=== PATIENT | male | born 1985 | race Caucasian/White ===

== ENCOUNTER 2018-11-09 10:07 | Outpatient (REF) | payer BC, SELFPAY ==
[2018-11-09 14:20] LABS: Cholesterol 259 mg/dL (50-200); HDL Cholesterol 74 mg/dL (40-60); LDL CHOLESTEROL 155 mg/dL (<100); Triglyceride 66 mg/dL (30-150)
== END 2018-11-09 10:27 ==
LOC: NCHCN 10:07
PROVIDERS: Visit Provider Nurse Practitioner
DX: Z00.00 Encounter for general adult medical examination without abnormal findings (principal); Z13.220 Encounter for screening for lipoid disorders
CPT/HCPCS: 80061; 83721

== ENCOUNTER 2020-11-26 02:53 | Outpatient (CLI) | payer BC, SELFPAY ==
[2020-12-03 17:29] LABS: Alternaria Tenuis IgE <0.35 kU/L; Aspergillus Fumigatus IgE 1.86 kU/L; Bermuda Grass IgE <0.35 kU/L; Cladosporium IgE <0.35 kU/L; Cocklebur IgE 0.39 kU/L; D Farinae IgE 5.75 kU/L; D Pteronyssinus IgE 5.83 kU/L; Dog Dander IgE 27.9 kU/L; Eastern Sycamore IgE <0.35 kU/L; Elm IgE <0.35 kU/L; Epicoccum purpurascens IgE <0.35 kU/L; Giant Ragweed IgE 0.48 kU/L; Lamb's Quarter IgE 0.41 kU/L; Oak IgE 0.58 kU/L; Penicillium chrysogenum IgE <0.35 kU/L; Rough Pigweed IgE <0.35 kU/L; Short Ragweed IgE 1.14 kU/L; Silver Birch IgE 0.66 kU/L; Stemphyllium IgE <0.35 kU/L; Timothy Grass IgE 0.98 kU/L; Walnut Tree IgE <0.35 kU/L; Wormwood IgE 0.52 kU/L
[2020-12-03 17:49] LABS: Cottonwood IgE <0.35 kU/L; Red Sorrel IgE <0.35 kU/L
[2020-12-08 10:50] LABS: CLASS 0; CLASS 0/1; Fusarium oxysporum/vasinfectum <0.35 kU/L (<0.35)
[2020-12-11 16:16] LABS: Rhodotorula IgE QNS kU/L (<0.35)
== END 2020-11-26 02:54 | disposition home or self-care (01) ==
LOC: LBO 02:53
PROVIDERS: PCP Nurse Practitioner Family; Visit Provider Otolaryngology Otolaryngology/Facial Plastic Surgery
DX: J31.0 Chronic rhinitis (principal); R09.82 Postnasal drip; J45.909 Unspecified asthma, uncomplicated
CPT/HCPCS: 36415; 86003

== ENCOUNTER → 2022-03-17 14:00 | Outpatient (CLI) | payer BC, SELFPAY ==
--- NOTE | 2022-03-17 14:13 | DI.RAD_ITS ---
Exam(s) XR FINGER RT INDEX EXAM: XR FINGER RT INDEX CLINICAL HISTORY: CRUSH INJURY,PAIN,M79.644? TUFT FX. TECHNIQUE: 2D digital imaging was performed. COMPARISON: No exams were available for comparison FINDINGS: 3 views Soft tissue injury noted at the nailbed level of the 2nd-index finger. No evidence of fracture or dislocation. No radiopaque foreign body. No osseous lesions nor erosions . IMPRESSION: No fracture evident. DATA REPOSITORY: RADIATION DOSE DELIVERED:
== END ==
PROVIDERS: PCP Nurse Practitioner Family; Visit Provider Physician Assistant Medical
DX: M79.644 Pain in right finger(s) (principal); M79.89 Other specified soft tissue disorders; S67.190A Crushing injury of right index finger, initial encounter
CPT/HCPCS: 73140

== ENCOUNTER 2023-02-03 12:50 | Outpatient (REF) | payer BC, SELFPAY ==
[2023-02-03 14:09] LABS: ALT 65 U/L (16-63); AST 30 U/L (15-37); Albumin 4.4 g/dL (3.4-5.0); Alkaline Phosphatase 75 U/L (46-116); Anion Gap 10.2 mmol/L (3-11); BUN 15 mg/dL (7-18); Bilirubin, Total 0.6 mg/dL (0.2-1.0); CO2 24.8 mmol/L (21.0-32.0); CREATININE 1.1 mg/dL (0.70-1.30); Calcium 9.6 mg/dL (8.5-10.1); Calculated LDL 206 mg/dL (<100); Chloride 105 mmol/L (98-107); Cholesterol 291 mg/dL (<200); Estimated GFR 87.57 (mL/min/1.73m2); Glucose 96 mg/dL (74-106); HDL Cholesterol 74 mg/dL (40-60); Potassium 4.1 mmol/L (3.5-5.1); Sodium 140 mmol/L (136-145); Total Protein 8.2 g/dL (6.4-8.2); Triglyceride 56 mg/dL (<150)
== END 2023-02-03 12:51 | disposition home or self-care (01) ==
LOC: NCHCN 12:50
PROVIDERS: PCP Nurse Practitioner Family; Visit Provider Nurse Practitioner Family
DX: Z00.00 Encounter for general adult medical examination without abnormal findings (principal); E78.5 Hyperlipidemia, unspecified
CPT/HCPCS: 80053; 80061

== ENCOUNTER 2024-04-25 09:11 | Outpatient (REF) | payer BC, SELFPAY ==
[2024-04-25 15:24] LABS: HCT 42.8 % (40.0-50.0); HGB 14.2 g/dL (13.5-17.5); MCH 31.7 pg (27.0-33.0); MCHC 33.2 % (32.0-36.0); MCV 96 fL (80-95); MPV 9.7 fL (8.0-11.0); Platelet Count 285 10^3/uL (130-400); RBC 4.48 10^6/uL (4.36-5.78); RDW 12.3 % (11.8-14.1); RDW-SD 43.5 fL
[2024-04-25 16:05] LABS: ALT 49 U/L (16-63); AST 26 U/L (15-37); Albumin 4.5 g/dL (3.4-5.0); Alkaline Phosphatase 69 U/L (46-116); Anion Gap 10.2 mmol/L (3-11); BUN 15 mg/dL (7-18); Bilirubin, Total 0.89 mg/dL (0.2-1.0); CO2 27.8 mmol/L (21.0-32.0); CREATININE 0.9 mg/dL (0.70-1.30); Calcium 9.4 mg/dL (8.5-10.1); Calculated LDL 97 mg/dL (<100); Chloride 105 mmol/L (98-107); Cholesterol 187 mg/dL (<200); Estimated GFR 110.73 (mL/min/1.73m2); Glucose 86 mg/dL (74-106); HDL Cholesterol 76 mg/dL (40-60); Potassium 4.3 mmol/L (3.5-5.1); Sodium 143 mmol/L (136-145); Total Protein 7.7 g/dL (6.4-8.2); Triglyceride 71 mg/dL (<150)
== END 2024-04-25 09:12 | disposition home or self-care (01) ==
LOC: NCHCN 09:11
PROVIDERS: PCP Nurse Practitioner Family; Visit Provider Nurse Practitioner Family
DX: Z00.00 Encounter for general adult medical examination without abnormal findings (principal); Z13.220 Encounter for screening for lipoid disorders; Z13.228 Encounter for screening for other metabolic disorders; Z13.0 Encounter for screening for diseases of the blood and blood-forming organs and certain disorders involving the immune mechanism
CPT/HCPCS: 80053; 80061; 85027